=== PATIENT | male | born 1995 | race Caucasian/White ===

== ENCOUNTER 2021-01-30 13:55 | Inpatient (IN) | payer MEDICAID ==
[~2021-01-30] VITALS: Ht 177.8 cm; Wt 86.6 kg
[2021-01-30] MEDS ORDERED: NICOTINE 21 MG/24 HOUR PATCH TD ONE (15:45)
[2021-01-30 15:50] LABS: BASOPHILS % (AUTO) 0.6 % (0.0-2.0); EOSINOPHILS % (AUTO) 1.7 % (1.0-6.0); HEMATOCRIT 49.9 % (41-53); HEMOGLOBIN 16.7 g/dL (13.5-17.5); LYMPHOCYTES # (AUTO) 4.2 K/uL (1.0-4.8); LYMPHOCYTES % (AUTO) 39.7 % (22.0-44.0); MEAN CORPUSCULAR HEMOGLOBIN 29.6 pg (26.0-34.0); MEAN CORPUSCULAR HGB CONC 33.5 G/dL (31.0-37.0); MEAN CORPUSCULAR VOLUME 88 fL (80-100); MONOCYTES # (AUTO) 0.7 K/uL (0.1-1.0); MONOCYTES % (AUTO) 6.9 % (2.0-9.0); NEUTROPHILS # (AUTO) 5.4 K/uL (1.8-7.7); NEUTROPHILS % (AUTO) 51.1 % (40.0-70.0); PLATELET COUNT (AUTO) 270 K/uL (150-450); RED BLOOD CELL COUNT(AUTO) 5.65 MIL/uL (4.50-5.90)
[2021-01-30 16:03] LABS: ANION GAP 6 mmol/L (8-16); CALCIUM, TOTAL 8.9 mg/dL (8.8-10.5); CARBON DIOXIDE 31 mmol/L (22-29); CHLORIDE 106 mmol/L (98-107); CREATININE 0.94 mg/dL (0.60-1.30); GLOMERULAR FILTR. RATE CALC > 60 mL/min (>60); GLUCOSE,RANDOM 87 mg/dL (70-110); POTASSIUM 3.8 mmol/L (3.5-5.1); SODIUM SERUM 143 mmol/L (136-145); UREA NITROGEN, BLOOD 14 mg/dL (7-18)
[2021-01-30 16:09] LABS: COVID AG,FIA SOURCE NASOPHARYNGEAL
[2021-01-30 16:10] LABS: ALANINE AMINOTRANSFERASE 41 U/L (12-78); ALBUMIN 4.3 g/dL (3.4-5.0); ASPARTATE AMINOTRANSFERASE 17 U/L (15-37); BILIRUBIN,TOTAL 0.3 mg/dL (0.1-1.0); TOTAL PROTEIN, SERUM 7.8 g/dL (6.4-8.2)
[2021-01-30 16:23] LABS: ALKALINE PHOSPHATASE 127 U/L (46-116)
[2021-01-30 16:30] LABS: AMPHET/METH SCREEN,URINE NEGATIVE (NEGATIVE); BARBITURATE SCREEN, URINE NEGATIVE (NEGATIVE); BENZODIAZEPINES SCREEN,URINE NEGATIVE (NEGATIVE); CANNABINOID SCREEN,URINE POSITIVE (NEGATIVE); COCAINE SCREEN,URINE NEGATIVE (NEGATIVE); METHADONE SCREEN, URINE NEGATIVE (NEGATIVE); OPIATE SCREEN,URINE NEGATIVE (NEGATIVE); PHENCYCLIDINE SCREEN,URINE NEGATIVE (NEGATIVE)
[2021-01-30] MEDS ORDERED: ZOLPIDEM TARTRATE 10 MG TABLET PO PRN (18:15)
[2021-01-30 21:10] VITALS: BP 147/78
[2021-01-30] MEDS: LORazepam 2 MG TABLET PO PRN (21:37)
[2021-01-30] MEDS: HALOPERIDOL 5 MG TABLET PO PRN (21:37)
[2021-01-31 08:35] VITALS: BP 118/77
[2021-01-31] MEDS ORDERED: MAG HYDROX/AL HYDROX/SIMETH ES 30 ML SUSPENSION UDCUP PO PRN (09:45)
[2021-01-31] MEDS ORDERED: CloNIDine HCL 0.1 MG TABLET PO PRN (09:45)
[2021-01-31] MEDS ORDERED: IBUPROFEN 400 MG TABLET PO PRN (09:45)
[2021-01-31] MEDS ORDERED: MAGNESIUM HYDROXIDE SUSPENSION 30 ML UDCUP PO PRN (09:45)
[2021-01-31] MEDS ORDERED: ALBUTEROL SULFATE HFA 90 MCG/PUFF 8 GM INHALER IH PRN (09:45)
[2021-01-31] MEDS ORDERED: ACETAMINOPHEN 325 MG TABLET PO PRN (09:45)
[2021-01-31] MEDS ORDERED: PETROLATUM,WHITE 28 GM JELLY TP PRN (09:45)
[2021-01-31] MEDS ORDERED: LOPERAMIDE HCL 2 MG CAPSULE PO PRN (09:45)
[2021-01-31] MEDS ORDERED: GuaiFENesin/D-METHORPHAN [SUGAR-FREE] 200-20MG/10 ML SYRUP UDCUP PO PRN (09:45)
[2021-01-31] MEDS ORDERED: ONDANSETRON HCL 4 MG TABLET PO PRN (09:45)
[2021-01-31] MEDS ORDERED: NICOTINE 14 MG/24 HOUR PATCH TD PRN (09:45)
[2021-01-31] MEDS ORDERED: DOCUSATE SODIUM 100 MG CAPSULE PO PRN (09:45)
[2021-01-31] MEDS: DIVALPROEX SODIUM 500 MG ER TABLET PO SCH ×2 (09:49→16:08)
[2021-01-31] MEDS: OLANZapine 5 MG TABLET PO SCH ×2 (09:49→16:08)
[2021-01-31] MEDS: LORazepam 2 MG TABLET PO PRN ×2 (09:54→17:03)
[2021-01-31] MEDS: HALOPERIDOL 5 MG TABLET PO PRN ×2 (11:14→17:03)
[2021-01-31 16:50] VITALS: BP 102/60
[2021-01-31 17:03] VITALS: BP 131/78
[2021-01-31] MEDS: NICOTINE POLACRILEX 2 MG LOZENGE PO PRN (20:45)
[2021-02-01 02:25] VITALS: BP 117/71
[2021-02-01] MEDS: DIVALPROEX SODIUM 500 MG ER TABLET PO SCH ×2 (08:39→16:11)
[2021-02-01] MEDS: OLANZapine 5 MG TABLET PO SCH ×2 (08:39→16:11)
[2021-02-01 08:41] VITALS: BP 121/76
[2021-02-01] MEDS: HALOPERIDOL 5 MG TABLET PO PRN ×2 (09:13→16:05)
[2021-02-01] MEDS: LORazepam 2 MG TABLET PO PRN ×2 (09:13→16:05)
[2021-02-01] MEDS: NICOTINE POLACRILEX 2 MG LOZENGE PO PRN (09:24)
[2021-02-01 16:31] VITALS: BP 107/56
[2021-02-02 06:49] VITALS: BP 115/69
[2021-02-02] MEDS: LORazepam 2 MG TABLET PO PRN (08:25)
[2021-02-02] MEDS: HALOPERIDOL 5 MG TABLET PO PRN (08:25)
[2021-02-02] MEDS: DIVALPROEX SODIUM 500 MG ER TABLET PO SCH (08:49)
[2021-02-02] MEDS: OLANZapine 5 MG TABLET PO SCH (08:49)
[2021-02-02] MEDS: NICOTINE POLACRILEX 2 MG LOZENGE PO PRN (09:41)
[2021-02-02] MEDS ORDERED: DIVA-80 PO (10:12)
[2021-02-02] MEDS ORDERED: OLAN5TAB52 PO (10:12)
== END 2021-02-02 13:00 | disposition home or self-care (01) | DRG 750 ==
LOC: EMS 13:55 → B3A 19:00 → EMS 20:30 → B3A 21:48
PROVIDERS: ADMIT Psychiatry & Neurology Child & Adolescent Psychiatry; ATTEND Psychiatry & Neurology Child & Adolescent Psychiatry
DX: F20.0 Paranoid schizophrenia (principal); E86.0 Dehydration; Z20.822 Contact with and (suspected) exposure to COVID-19; F12.10 Cannabis abuse, uncomplicated; Z79.899 Other long term (current) drug therapy
CPT/HCPCS: 80053; 85025; 99285; G0480; Q9967